=== PATIENT | male | born 1960 | race Hispanic/Latino ===

== ENCOUNTER 2016-12-09 13:12 | Outpatient (CLI) | payer BC | END 2016-12-09 13:13 | disposition home or self-care (01) | LOC: CP 13:12 | PROVIDERS: ATTEND Internal Medicine Critical Care Medicine | DX: J45.909 Unspecified asthma, uncomplicated (principal); G47.33 Obstructive sleep apnea (adult) (pediatric); R06.09 Other forms of dyspnea | CPT/HCPCS: 94010; 94727; 94729 ==

== ENCOUNTER 2018-09-13 08:16 | Outpatient (CLI) | payer BC ==
--- NOTE | 2018-09-13 08:56 | RAD ---
FRONTAL AND LATERAL IMAGING OF THORACIC SPINE: DATE: 09/13/2018. COMPARISON: None. HISTORY: Thoracic spine pain. FINDINGS: Thoracic pedicles appear intact on frontal imaging. Lateral examination demonstrates mild multilevel disk space narrowing and anterior osteophyte formation. There is no anterolisthesis or retrolisthesis noted within the thoracic spine. No evidence for acute fracture or dislocation. IMPRESSION: No acute osseous abnormality. POS: [facility]
== END 2018-09-13 08:17 | disposition home or self-care (01) ==
LOC: BICRAD 08:16
PROVIDERS: ATTEND Specialist
DX: M54.6 Pain in thoracic spine (principal)
CPT/HCPCS: 72072

== ENCOUNTER 2019-01-01 11:50 | Outpatient (CLI) | payer BC ==
--- NOTE | 2019-01-01 12:45 | ULT ---
EXAM: Left lower extremity venous ultrasound HISTORY: Left lower extremity pain and bulge behind in the COMPARISON: None TECHNIQUE: Multiplanar grayscale and color Doppler images were obtained in a left lower extremity cy ous ultrasound. Spectral analysis of the Doppler waveforms were performed. FINDINGS: The common femoral vein, profunda femoral vein, superficial femoral vein, and popliteal vei n are normal in appearance without visible thrombus. These vessels demonstrate normal compression, flow, and augmentation. The posterior tibial vein and greater saphenous vein are patent without evidence of thrombus. No Bake r's cyst is identified. IMPRESSION: No evidence of DVT.
== END 2019-01-01 11:51 | disposition home or self-care (01) ==
LOC: BICULT 11:50
PROVIDERS: ATTEND Specialist
DX: M79.605 Pain in left leg (principal); Z86.718 Personal history of other venous thrombosis and embolism

== ENCOUNTER 2020-05-26 11:18 | Outpatient (CLI) | payer BC | END 2020-05-26 11:19 | disposition home or self-care (01) | LOC: BICRAD 11:18 | PROVIDERS: ATTEND Specialist | DX: R06.00 Dyspnea, unspecified (principal) | CPT/HCPCS: 71046 ==

== ENCOUNTER 2020-12-09 10:08 | Outpatient (CLI) | payer BC | END 2020-12-09 10:09 | disposition home or self-care (01) | LOC: BICRAD 10:08 | PROVIDERS: ATTEND Internal Medicine Critical Care Medicine | DX: R06.00 Dyspnea, unspecified (principal) | CPT/HCPCS: 71046 ==

== ENCOUNTER 2021-05-08 09:39 | Outpatient (CLI) | payer BC | END 2021-05-08 09:40 | disposition home or self-care (01) | LOC: BICRAD 09:39 | PROVIDERS: ATTEND Specialist | DX: S79.912A Unspecified injury of left hip, initial encounter (principal) ==